=== PATIENT | female | born 1990 | race American Indian/Alaskan Native ===

== ENCOUNTER 2017-12-26 13:00 | Emergency (ER) | payer OTHER ==
[2017-12-26 13:37] LABS: Bilirubin,Urine NEG (Negative); Blood,Urine NEG (Negative); Color,Urine Yellow (Yellow); Mucus,Urine 2+ /HPF; Protein,Urine <15 mg/dL mg/dL (Negative); Urobilinogen,Urine < 2.0 mg/dL (<2.0)
[2017-12-26 13:54] LABS: HCG Qualitative,Urine Negative (Negative)
[2017-12-26] MEDS ORDERED: NACL 0.9% 1000 ML 1,000 ML IV ONE (15:04)
--- NOTE | 2017-12-26 15:17 | Emergency Department Report ---
ED Abdominal Pain HPI - General Chief Complaint: Urogenital-Female Stated Complaint: ABD PAIN Time Seen by Provider: 12/26/17 15:02 Source: patient Mode of arrival: Ambulatory Limitations: No Limitations - History of Present Illness Initial Comments: 27-year-old female presents to ED complaining of periumbilical so left-sided abdominal pain for the past week. Patient states she had her gallbladder removed a couple years ago. Patient states she was told not to a certain foods and has followed her GI instruction since the removal of the gallbladder. Patient states she drinks enough water per day. Patient states she also has watery loose stools that are greenish in color, she denies any blood or pus in the stool. Admits but no vommitting. Patient states she has had about 8 episodes today of diarrhea. Patient states she hasn't eaten today due to abdominal cramping/throbbing type pain. she states taking only callegra for her seasonal allergies and denies taking any other medications or recent antibiotic use. MD Complaint: abdominal pain -: Gradual Location: diffuse Radiation: back Migration to: no migration Severity: moderate Severity scale (0 -10): 6 Quality: aching Consistency: intermittent Associated Symptoms: nausea, diarrhea. denies: vomiting - Related Data Previous Rx's Medication Instructions Recorded Last Taken Type Acetaminophen [Tylenol Extra 500 mg PO Q8H #30 tablet 12/26/17 Unknown Rx Strength] Allergies Allergy/AdvReac Type Severity Reaction Status Date / Time No Known Allergies Allergy Unverified 12/26/17 13:03 ED Review of Systems ROS: Stated complaint: ABD PAIN Other details as noted in HPI Constitutional: denies: chills, fever Eyes: denies: eye pain, eye discharge, vision change ENT: denies: ear pain, throat pain, dental pain, congestion Respiratory: denies: cough, shortness of breath, wheezing Cardiovascular: denies: chest pain, palpitations Endocrine: no symptoms reported Gastrointestinal: nausea, diarrhea. denies: abdominal pain, vomiting, constipation Genitourinary: denies: urgency, dysuria, frequency, hematuria, discharge, abnormal menses Musculoskeletal: denies: back pain, joint swelling, arthralgia Skin: denies: rash, lesions Neurological: denies: headache, weakness, paresthesias Psychiatric: denies: anxiety, depression Hematological/Lymphatic: denies: easy bleeding, easy bruising ED Past Medical Hx - Past Medical History Previous Medical History?: Yes - Surgical History Past Surgical History?: Yes Hx Cholecystectomy: Yes - Social History Smoking Status: Current Every Day Smoker Substance Use Type: Non Opiate Pain - Medications Home Medications: Home Medications Medication Instructions Recorded Confirmed Last Taken Type Acetaminophen [Tylenol Extra 500 mg PO Q8H #30 tablet 12/26/17 Unknown Rx Strength] ED Physical Exam - General Limitations: No Limitations General appearance: alert, in no apparent distress - Head Head exam: Present: atraumatic, normocephalic - Eye Eye exam: Present: normal appearance, PERRL, conjunctival injection (from seasonal allergies). Absent: scleral icterus, periorbital swelling, periorbital tenderness Pupils: Present: normal accommodation - ENT ENT exam: Present: mucous membranes moist - Neck Neck exam: Present: normal inspection - Respiratory Respiratory exam: Present: normal lung sounds bilaterally. Absent: respiratory distress, wheezes, rales - Cardiovascular Cardiovascular Exam: Present: regular rate, normal rhythm. Absent: systolic murmur, diastolic murmur, rubs, gallop - GI/Abdominal GI/Abdominal exam: Present: soft, normal bowel sounds. Absent: distended, tenderness, guarding, rebound, rigid, mass, pulsatile mass - Extremities Exam Extremities exam: Present: normal inspection, full ROM. Absent: tenderness - Back Exam Back exam: Present: normal inspection, full ROM. Absent: tenderness, CVA tenderness (R), CVA tenderness (L) - Neurological Exam Neurological exam: Present: alert, oriented X3, normal gait - Psychiatric Psychiatric exam: Present: normal affect, normal mood - Skin Skin exam: Present: warm, dry, intact, normal color. Absent: rash ED Course Vital Signs 12/26/17 12/26/17 12/26/17 13:03 17:04 17:15 Temperature 98.6 F Pulse Rate 88 86 Respiratory 20 16 16 Rate Blood Pressure 121/76 Blood Pressure 124/71 [Right] O2 Sat by Pulse 100 100 Oximetry 12/26/17 17:31 Temperature Pulse Rate Respiratory 16 Rate Blood Pressure Blood Pressure [Right] O2 Sat by Pulse Oximetry ED Medical Decision Making - Lab Data Result diagrams: 12/26/17 15:22 12/26/17 15:22 - Radiology Data Radiology results: report reviewed, image reviewed FINAL REPORT EXAM: CT ABDOMEN PELVIS WO CON HISTORY: mid abd pain/diarh TECHNIQUE: CT examination of the ABDOMEN without IV contrast CT examination of the PELVIS without IV contrast PRIORS: None. FINDINGS: Slight lumbar curvature with upper left apex. Surgically absent gallbladder. Normal noncontrast appearance of the liver, adrenals, pancreas, and spleen. Normal caliber abdominal aorta and IVC. Normal-appearing kidneys and visible ureters. Very small fat containing umbilical hernia. No retroperitoneal mass or adenopathy. No mesenteric mass. Normal-appearing stomach and duodenum. No small bowel distention in the abdomen and pelvis. Nonspecific slight free fluid in the pelvic cul-de-sac region. This may be reactive. Normal-appearing urinary bladder and rectum. Normal-appearing uterus and adnexa. No sigmoid colon abnormality. No gross ascites, free air, or colonic distention. Normal-appearing cecum, terminal ileum, and appendix. IMPRESSION: Slight cul-de-sac free fluid in the pelvis may be reactive. Very small fat containing umbilical hernia Prior cholecystectomy Transcribed By: MIA Dictated By: ARLEEN GAYLE MD Electronically Authenticated By: ARLEEN GAYLE MD Signed Date/Time: 12/26/17 1235 - Medical Decision Making 27-year-old female presents with ED course: CBC, CMP urinalysis, UPT to tests ordered. Labs within normal limits, urinalysis negative urine presents to test negative CT scan shows, see report above. Patient received 1 L of fluids, Toradol for pain and Zofran. I discussed all findings with the patient. I discussed the patient she may be experiencing acute gastroenteritis I discussed diet and plenty of hydration with patient. I discussed the patient will follow-up with her recreation facility attendant. Discussed patient has a follow-up with her primary care doctors she can. Vital signs are normalized. Patient reports that better. Critical care attestation.: If time is entered above; I have spent that time in minutes in the direct care of this critically ill patient, excluding procedure time. ED Disposition Clinical Impression: Gastroenteritis Umbilical hernia Qualifiers: Obstruction and gangrene presence: without obstruction or gangrene Qualified Code(s): K42.9 - Umbilical hernia without obstruction or gangrene Disposition: - TO HOME OR SELFCARE Is pt being admited?: No Does the pt Need Aspirin: No Condition: Stable Instructions: Traveler's Diarrhea (ED), Gastroenteritis (ED), Umbilical Hernia (ED), Abdominal Pain (ED) Additional Instructions: Make sure to follow up with the primary care physician as discussed. Take all your medications as you've been prescribed. Follow-up a gastroenteritis. She increase her water intake to 8 doses per day, you can hydrate with Gatorade or powerade If you have any worsening symptoms or develop new symptoms please return to ED immediately. Prescriptions: Acetaminophen [Tylenol Extra Strength] 500 mg PO Q8H #30 tablet Referrals: PRIMARY CAREMD [Primary Care Provider] - 3-5 Days [facility] [Outside] - 3-5 Days [facility] [Outside] - 3-5 Days KVNG BOBBY MD [Referring] - 3-5 Days Forms: Work/School Release Form(ED) Time of Disposition: 17:01
[2017-12-26] MEDS ORDERED: ZOFRAN IV ONE (15:28)
[2017-12-26 15:33] LABS: Basophils % (Auto) 0.6 % (0.0-1.8); Eosinophils # (Auto) 0.1 K/mm3 (0.0-0.4); Eosinophils % (Auto) 2.1 % (0.0-4.3); Hematocrit 40.6 % (30.3-42.9); Hemoglobin 13.5 gm/dl (10.1-14.3); Lymphocytes # (Auto) 2.4 K/mm3 (1.2-5.4); Lymphocytes % (Auto) 38.1 % (13.4-35.0); Mean Corpuscular HGB Conc 33 % (30-34); Mean Corpuscular Hemoglobin 31 pg (28-32); Mean Corpuscular Volume 94 fl (79-97); Monocytes # (Auto) 0.5 K/mm3 (0.0-0.8); Monocytes % (Auto) 7.7 % (0.0-7.3); Platelet Count 190 K/mm3 (140-440); Red Cell Distribution Width 13.5 % (13.2-15.2)
[2017-12-26 15:57] LABS: Alanine Aminotransferase 11 units/L (7-56); BUN/Creatinine Ratio 16; Blood Urea Nitrogen 11 mg/dL (7-17); Calcium 8.7 mg/dL (8.4-10.2); Hemolysis Index 33
--- NOTE | 2017-12-26 16:39 | Cat Scan Report ---
FINAL REPORT EXAM: CT ABDOMEN PELVIS WO CON HISTORY: mid abd pain/diarh TECHNIQUE: CT examination of the ABDOMEN without IV contrast CT examination of the PELVIS without IV contrast PRIORS: None. FINDINGS: Slight lumbar curvature with upper left apex. Surgically absent gallbladder. Normal noncontrast appearance of the liver, adrenals, pancreas, and spleen. Normal caliber abdominal aorta and IVC. Normal-appearing kidneys and visible ureters. Very small fat containing umbilical hernia. No retroperitoneal mass or adenopathy. No mesenteric mass. Normal-appearing stomach and duodenum. No small bowel distention in the abdomen and pelvis. Nonspecific slight free fluid in the pelvic cul-de-sac region. This may be reactive. Normal-appearing urinary bladder and rectum. Normal-appearing uterus and adnexa. No sigmoid colon abnormality. No gross ascites, free air, or colonic distention. Normal-appearing cecum, terminal ileum, and appendix. IMPRESSION: Slight cul-de-sac free fluid in the pelvis may be reactive. Very small fat containing umbilical hernia Prior cholecystectomy
[2017-12-26] MEDS ORDERED: TORADOL IV ONE (16:55)
[2017-12-26 17:34] VITALS: BP 124/71
== END 2017-12-26 17:34 | disposition home or self-care (01) ==
LOC: ED 13:00
DX: K42.9 Umbilical hernia without obstruction or gangrene (principal); K52.9 Noninfective gastroenteritis and colitis, unspecified; F17.200 Nicotine dependence, unspecified, uncomplicated; Z90.49 Acquired absence of other specified parts of digestive tract
CPT/HCPCS: 36415; 74176; 80053; 81001; 81025; 85025; 96361; 96374; 96375; 99284; J1885; J2405; J7030